=== PATIENT | male | born 1960 | race Two or more races ===

== ENCOUNTER 2020-12-19 10:12 | Day surgery (SDC) | payer OTHER ==
[~2020-12-19] VITALS: Ht 160 cm; Wt 62.4 kg
[2020-12-19] MEDS ORDERED: CEFAZOLIN 1,000 MG ONE (11:57)
[2020-12-19] MEDS ORDERED: DEXAMETHASONE 4 MG/ML, 1ML ONE (11:57)
[2020-12-19] MEDS ORDERED: PROPOFOL 10 MG/ML, 20ML ONE (11:57)
[2020-12-19] MEDS ORDERED: ONDANSETRON 2MG/ML, 2ML ONE (11:57)
[2020-12-19] MEDS ORDERED: LIDOCAINE 1%, 20ML ONE (11:57)
[2020-12-19] MEDS ORDERED: FENTANYL PF 250 MCG/5ML ONE (12:04)
[2020-12-19] MEDS ORDERED: PROMETHAZINE 25 MG/ML, 1ML IVPush PRN (12:30)
[2020-12-19] MEDS ORDERED: OXYcodone 5 MG/5 ML ORAL.SOL UDC PO PRN (12:30)
[2020-12-19] MEDS ORDERED: LABETALOL 5MG/ML, 20ML IV PRN (12:30)
[2020-12-19] MEDS ORDERED: METHOCARBAMOL 1,000 MG in DEXTROSE 5% 100 ML IV PRN (12:30)
[2020-12-19] MEDS ORDERED: HYDROmorphone 1 MG/ML, 1ML INJ IVPush PRN (12:30)
[2020-12-19] MEDS ORDERED: FENTANYL PF 100 MCG/2ML IV PRN (12:30)
[2020-12-19] MEDS ORDERED: MEPERIDINE/PF 25MG/0.5ML IVPush PRN (12:30)
[2020-12-19] MEDS ORDERED: ONDANSETRON 2MG/ML, 2ML IVPush PRN (12:30)
[2020-12-19] MEDS ORDERED: ACETAMINOPHEN 325 MG TABLET PO PRN (12:30)
[2020-12-19] MEDS ORDERED: LORazepam 2 MG/ML, 1ML IVPush PRN (12:30)
[2020-12-19] MEDS ORDERED: hydrALAzine 20 MG/ML, 1ML IV PRN (12:30)
== END 2020-12-19 16:00 | disposition home or self-care (01) ==
LOC: OR 10:12 → 4NE 10:27 → OR 16:00
PROVIDERS: ATTEND Urology
DX: N35.912 Unspecified bulbous urethral stricture, male (principal); I10 Essential (primary) hypertension; Z20.822 Contact with and (suspected) exposure to COVID-19; Z79.899 Other long term (current) drug therapy; Z90.79 Acquired absence of other genital organ(s)
CPT/HCPCS: 52276; C1769; J0690; J1100; J2405; J2704; J3010; U0003; U0005; G0378